=== PATIENT | male | born 1945 | race Caucasian/White ===

== ENCOUNTER 2017-06-01 16:01 | Inpatient (IN) | payer OTHER, MEDICARE ==
--- NOTE | 2017-06-01 16:17 | EDM.PDOC ---
ED HPI GENERAL MEDICAL PROBLEM - General Chief Complaint: Respiratory Problem Stated Complaint: SOB,FEVER Time Seen by Provider: 06/01/17 16:14 Source of Information: Reports: Patient History Limitations: Reports: No Limitations - History of Present Illness INITIAL COMMENTS - FREE TEXT/NARRATIVE: 72-year-old male sent to the ED from the dialysis unit because of a persistent fever noted throughout his dialysis run today. Of note the patient was discharged from [facility] yesterday. This is his first dialysis run at this hospital today. Current temperature is 100.4 degrees. Patient complains of shortness of breath and fever. Patient states he developed fever and chills last evening. Came on very quickly. He usually is on oxygen at home usually 1-2 L at bedtime because his sats drop into the 85 zone when he sleeps. At time of presentation he came to the ED from dialysis with no oxygen with O2 sats of only 70%. This is the patient's first dialysis run today. He's been in and out of hospital in [place] for the last 6 weeks. A dry weight has been established and apparently they have taken off over 40 pounds of fluid from him over the last several weeks. At present he has developed a dry cough. He has had an influenza shot. Has had pneumonia in the past. By history has mild COPD. He does not have sleep apnea. Nurses of placed him on a mask at 12 L/m. This will be changed to nasal prongs at 5 L/m and ABGs will be done. Patient previously had a peritoneal dialysis catheter being utilized for dialysis which apparently plugged up and after several attempts to utilize it it failed and it was removed yesterday. He is immunocompromised due to multiple myeloma and received a chemotherapy shot in his right lower abdomen yesterday which is resulted in an area of erythema characteristic of the shots. He is on cyclosporine and dexamethasone. He still makes about a cup or more of urine per day. Patient has had an AV fistula created in his left upper extremity two days ago. Onset: Today, Sudden Onset Date: 05/31/17 (Was discharged from [facility] yesterday. States he developed fever and chills last evening.) Duration: Hour(s): Location: Reports: Generalized (Generalized fever with chills starting last night with a paroxysmal dry cough.) Quality: Reports: Ache (Generalized ache.) Severity: Moderate (Appears acutely with moderate respiratory distress.) Improves with: Reports: None Worsens with: Reports: Movement Context: Denies: Activity, Exercise, Lifting, Sick Contact, Trauma, Other Associated Symptoms: Reports: Cough (Dry hacking cough he has not identified any stool color to the sputum.), Fever/Chills, Loss of Appetite, Malaise, Shortness of Breath, Weakness (Chronically but much worse overnight.). 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 ) - Related Data Allergies Allergy/AdvReac Type Severity Reaction Status Date / Time No Known Allergies Allergy Verified 06/01/17 16:13 Home Meds: Home Meds Acetaminophen [Tylenol] 650 mg PO Q6H PRN 06/01/17 [History] Acyclovir 200 mg PO BID 06/01/17 [History] Aspirin 81 mg PO DAILY 06/01/17 [History] Budesonide/Formoterol [Symbicort 160-4.5 MCG] 2 puff INH BID 06/01/17 [History] Calcium Acetate 667 mg PO TID 06/01/17 [History] Fluticasone/Salmeterol [Advair Hfa 230-21 Mcg Inhaler] 2 puff INH BID 06/01/17 [ History] Lactulose [Chronulac] 30 ml PO Q6H PRN 06/01/17 [History] Melatonin 3 mg PO BEDTIME PRN 06/01/17 [History] Metoprolol Succinate 25 mg PO BID 06/01/17 [History] NIFEdipine [Procardia] 30 mg PO DAILY 06/01/17 [History] Pantoprazole Sodium [Protonix] 40 mg PO DAILY 06/01/17 [History] Rosuvastatin [Crestor] 40 mg PO DAILY 06/01/17 [History] Tamsulosin [Flomax] 0.4 mg PO DAILY 06/01/17 [History] Tiotropium Speer [Spiriva Respimat] 18 mcg INH DAILY 06/01/17 [History] hydrALAZINE [Apresoline] 10 mg PO TID 06/01/17 [History] oxyCODONE HCl/Acetaminophen [oxyCODONE-Acetaminophen 5-325] 5 - 325 mg PO Q4H PRN 06/01/17 [History] Past Medical History Cardiovascular History: Reports: Hypertension, SOB on Exertion Respiratory History: Reports: Bronchitis, Recurrent, COPD. Denies: Sleep Apnea Genitourinary History: Reports: BPH, Dialysis (Currently on hemodialysis utilizing Broviac catheters right upper anterior chest. He has had an AV fistula formed and his left antecubital and left lower arm 2 days ago.), Dialysis, Peritoneal (Was previously on peritoneal dialysis but the dialysis catheter failed over the last 3 weeks and it was finally removed yesterday.) Musculoskeletal History: Reports: Arthritis, Back Pain, Chronic, Osteoarthritis Oncologic (Cancer) History: Reports: Malignant Melanoma Social & Family History - Living Situation & Occupation Living situation: Reports: Occupation: Retired ED ROS GENERAL - Review of Systems Review Of Systems: See Below Constitutional: Reports: Fever, Chills, Malaise, Weakness, Fatigue, Decreased Appetite, Weight Loss (Has lost 40 pounds of weight on dialysis over the last 6 weeks) HEENT: Denies: Glasses, Hearing Loss, Nosebleed, Nose Pain, Rhinitis, Sinus Problem, Throat Pain, Throat Swelling, Vertigo Respiratory: Reports: Shortness of Breath, Cough. Denies: Wheezing, Pleuritic Chest Pain Cardiovascular: Reports: Blood Pressure Problem, Dyspnea on Exertion (Chronic dependent edema which she reports is quite a bit improved with 40 pound weight loss over the last 6 weeks), Edema, Orthopnea, Other. Denies: Chest Pain (Not bringing up much sputum at this time.), Claudication (Chronic severe hypertension due to renal disease.), Palpitations Endocrine: Reports: Fatigue (Utilizes oxygen at bedtime because his sats drop below 85%.) GI/Abdominal: Reports: Constipation, Decreased Appetite : Reports: Other Musculoskeletal: Reports: Back Pain (Still makes a little over a cup of urine per day. Has known problems with his prostate gland.), Other (Can barely walk due to lower extremity weakness.) Skin: Reports: Erythema (Erythema at site of abdominal injection with chemotherapy yesterday right lower abdomen. States it always becomes reddened where he gets the injections.) Neurological: Reports: Dizziness, Difficulty Walking (Due to severe weakness in the lower extremities), Gait Disturbance (Widened gait.). Denies: Headache, Numbness, Pre-Existing Deficit, Seizure, Syncope, Tingling (Occasionally.), Change in Speech Psychiatric: Reports: No Symptoms Hematologic/Lymphatic: Reports: Anemia ED EXAM, GENERAL - Physical Exam Exam: See Below Exam Limited By: Respiratory Distress (Patient is currently on a nonrebreather mask at 12 L/m due to sats at 70% at presentation to the ED. This will be replaced with nasal cannula at 5 L/m. He usually uses oxygen 1-2 L by nasal cannula at bedtime to maintain his O2 sats during sleep. He does not have sleep apnea according to the .) General Appearance: Lethargic, Moderate Distress (He has significant respiratory distress. ) Eye Exam: Bilateral Eye: Normal Inspection (Lower eyelids are revealing pallor.) Throat/Mouth: Normal Inspection, Normal Lips, Normal Oropharynx. No: Normal Teeth Head: Atraumatic, Normocephalic Neck: Normal Inspection, Full Range of Motion, Tender Lateral (Bilaterally but he states this is normal for him.). No: Lymphadenopathy (L), Lymphadenopathy (R ) Respiratory/Chest: Chest Non-Tender, Respiratory Distress (Moderate respiratory distress 22-26 breaths per minute. O2 sats initially were 70%. He was placed on nonrebreather mask by nursing staff at 12 L/m with O2 sats of 98%. After I visited with the patient he will be reduced to nasal prongs at 5 L/m and hopefully reduce further. ABGs will be done to assess his carbon dioxide levels. ), Rales (Few rales scattered throughout the bases of both lungs.), Rhonchi. No : Wheezing Cardiovascular: Regular Rate, Rhythm, No Murmur, No Rub. No: Normal Peripheral Pulses, Systolic Murmur Peripheral Pulses: 0: Posterior Tibial (L), Posterior Tibial (R), Dorsalis Pedis (L), Dorsalis Pedis (R) (No pulsatile palpable in his feet due to dependent edema.) GI/Abdominal: Normal Bowel Sounds, Non-Tender, No Mass, Other (He has a area of erythema approximately 7 cm in length and 2 cm lesion in with right lower quadrant of the abdomen at site of recent chemotherapy injection. Is a bandage covering the peritoneal dialysis wound infraumbilically. This has been oozing some serosanguineous fluid.) Extremities: Pedal Edema (Has 3+ pitting edema bilaterally.), Other (Recent formation of a AV fistula left lower arm over the biceps muscle. Has a good strong palpable thrill. Nurses felt the wound may be dehiscing and we bit in the antecubital fossa but I did not feel that this was the case.) Neurological: Alert, Oriented, CN II-XII Intact, Normal Cognition. No: Normal Gait Skin Exam: Warm, Dry, Normal Color, No Rash, Pallor (He is quite pallid.) EKG INTERPRETATION EKG Date: 06/01/17 Time: 17:00 Rhythm: Other Rate (Beats/Min): 102 [place]: Normal P-Wave: Present QRS: Normal ST-T: Other (T-wave flattening one in aVL and V6 which are nonspecific findings. ) QT: Normal Course - Vital Signs Last Recorded V/S: Last Vital Signs Temp 37.2 C 06/01/17 16:09 Pulse 115 H 06/01/17 16:09 Resp 22 H 06/01/17 16:09 BP 216/95 H 06/01/17 16:09 Pulse Ox 98 06/01/17 16:53 - Orders/Labs/Meds Orders: Active Orders 24 hr Category Date Time Status Admission Status [Patient Status] [ADT] Routine ADT 06/01/17 19:07 Active EKG Documentation Completion [RC] STAT Care 06/01/17 16:16 Active Peripheral IV Care [RC] . DIRECTED Care 06/01/17 18:59 Active Chest 1V Frontal [CR] Stat Exams 06/01/17 16:15 Taken CULTURE BLOOD [BC] Stat Lab 06/01/17 16:40 Received CULTURE BLOOD [BC] Stat Lab 06/01/17 17:00 Received INFLUENZA A+B AG SCREEN [RM] Stat Lab 06/01/17 16:35 Received URINALYSIS W/MICROSCOPIC [UA W/MICROSCOPIC] [URIN] Stat Lab 06/01/17 16:16 Uncollected URINALYSIS W/O MICROSCOPIC [UA W/O MICROSCOPIC] [URIN] Lab 06/01/17 16:16 Uncollected Stat Sodium Chloride 0.9% [Saline Flush] Med 06/01/17 18:59 Active 10 ml FLUSH ASDIRECTED PRN Blood Culture x2 Reflex Set [OM.PC] Stat Oth 06/01/17 16:16 Ordered Peripheral IV Insertion Adult [OM.PC] Stat Oth 06/01/17 18:59 Ordered Medication Orders Sodium Chloride (Saline Flush) 10 ml FLUSH ASDIRECTED PRN PRN Reason: Keep Vein Open Last Admin: 06/01/17 19:09 Dose: 10 ml Labs: Laboratory Tests 06/01/17 06/01/17 06/01/17 Range/Units 16:39 16:40 16:40 WBC 17.28 H (4.23-9.07) K/mm3 RBC 3.02 L (4.63-6.08) M/mm3 Hgb 9.1 L (13.7-17.5) gm/L Hct 28.7 L (40.1-51.0) % MCV 95.0 H (79.0-92.2) fl MCH 30.1 (25.7-32.2) pg MCHC 31.7 L (32.2-35.5) g/dl RDW Std Deviation 48.7 H (35.1-43.9) fL Plt Count 28 L (163-337) K/mm3 MPV 10.6 (9.4-12.3) fl Neutrophils % (Manual) 92 H (40-60) % Band Neutrophils % 0 (0-10) % Lymphocytes % (Manual) 3 L (20-40) % Atypical Lymphs % 0 % Monocytes % (Manual) 5 (2-10) % Eosinophils % (Manual) 0 L (0.8-7.0) % Basophils % (Manual) 0 L (0.2-1.2) Platelet Estimate Marked dec Plt Morphology Comment Normal Poikilocytosis 1+ slight Anisocytosis 1+ slight ESR (0-15) mm/hr PT 11.0 (8.0-13.0) SECONDS INR 1.01 Puncture Site Rt radial ABG pH 7.41 (7.35-7.45) ABG pCO2 41.4 (35.0-45.0) mmHg ABG pO2 65.0 L (80.0-100.0) mmHg ABG HCO3 25.8 (22.0-26.0) meq/L ABG O2 Saturation 95.1 L (96.0-97.0) % ABG Base Excess 1.6 (-2-2.0) Yoel Test Positive A-a Gradient 140 mmHg O2 Delivery Device Nasal cannula Oxygen Flow Rate 5.0 FiO2 40.00 (21.00-100.00) % Sodium (136-145) mEq/L Potassium (3.5-5.1) mEq/L Chloride (98-107) mEq/L Carbon Dioxide (21-32) mEq/L Anion Gap (5-15) BUN (7-18) mg/dL Creatinine (0.7-1.3) mg/dL Est Cr Clr Drug Dosing mL/min Estimated GFR (MDRD) (>60) mL/min BUN/Creatinine Ratio (14-18) Glucose (83-115) mg/dL Calcium (8.5-10.1) mg/dL Magnesium (1.8-2.4) mg/dl Total Bilirubin (0.2-1.0) mg/dL AST (15-37) U/L ALT (16-63) U/L Alkaline Phosphatase (46-116) U/L CK-MB (CK-2) (0-3.6) ng/ml Troponin I (0.00-0.056) ng/mL C-Reactive Protein (<1.0) mg/dL NT-Pro-B Natriuret Pep (0-125) pg/mL Total Protein (6.4-8.2) g/dl Albumin (3.4-5.0) g/dl Globulin gm/dL Albumin/Globulin Ratio (1-2) 06/01/17 06/01/17 06/01/17 Range/Units 16:40 16:40 16:40 WBC (4.23-9.07) K/mm3 RBC (4.63-6.08) M/mm3 Hgb (13.7-17.5) gm/L Hct (40.1-51.0) % MCV (79.0-92.2) fl MCH (25.7-32.2) pg MCHC (32.2-35.5) g/dl RDW Std Deviation (35.1-43.9) fL Plt Count (163-337) K/mm3 MPV (9.4-12.3) fl Neutrophils % (Manual) (40-60) % Band Neutrophils % (0-10) % Lymphocytes % (Manual) (20-40) % Atypical Lymphs % % Monocytes % (Manual) (2-10) % Eosinophils % (Manual) (0.8-7.0) % Basophils % (Manual) (0.2-1.2) Platelet Estimate Plt Morphology Comment Poikilocytosis Anisocytosis ESR 25 H (0-15) mm/hr PT (8.0-13.0) SECONDS INR Puncture Site ABG pH (7.35-7.45) ABG pCO2 (35.0-45.0) mmHg ABG pO2 (80.0-100.0) mmHg ABG HCO3 (22.0-26.0) meq/L ABG O2 Saturation (96.0-97.0) % ABG Base Excess (-2-2.0) Yoel Test A-a Gradient mmHg O2 Delivery Device Oxygen Flow Rate FiO2 (21.00-100.00) % Sodium 139 (136-145) mEq/L Potassium 3.9 (3.5-5.1) mEq/L Chloride 102 (98-107) mEq/L Carbon Dioxide 27 (21-32) mEq/L Anion Gap 13.9 (5-15) BUN 15 (7-18) mg/dL Creatinine 2.5 H (0.7-1.3) mg/dL Est Cr Clr Drug Dosing 26.71 mL/min Estimated GFR (MDRD) 26 (>60) mL/min BUN/Creatinine Ratio 6.0 L (14-18) Glucose 91 (83-115) mg/dL Calcium 8.0 L (8.5-10.1) mg/dL Magnesium 1.5 L (1.8-2.4) mg/dl Total Bilirubin 0.3 (0.2-1.0) mg/dL AST 20 (15-37) U/L ALT 9 L (16-63) U/L Alkaline Phosphatase 103 (46-116) U/L CK-MB (CK-2) 0.9 (0-3.6) ng/ml Troponin I 0.044 (0.00-0.056) ng/mL C-Reactive Protein 1.4 H* (<1.0) mg/dL NT-Pro-B Natriuret Pep 9225 H (0-125) pg/mL Total Protein 5.4 L (6.4-8.2) g/dl Albumin 2.3 L (3.4-5.0) g/dl Globulin 3.1 gm/dL Albumin/Globulin Ratio 0.7 L (1-2) Meds: Medications Generic Name Dose Route Start Last Admin Trade Name Freq PRN Reason Stop Dose Admin Sodium Chloride 10 ml 06/01/17 18:59 06/01/17 19:09 Saline Flush FLUSH 10 ml ASDIRECTED PRN Administration Keep Vein Open Discontinued Medications Generic Name Dose Route Start Last Admin Trade Name Freq PRN Reason Stop Dose Admin Ceftriaxone Sodium Confirm 06/01/17 17:41 06/01/17 17:45 Rocephin Administered 06/01/17 17:42 2 gm Dose Administration 2 gm .ROUTE .STK-MED ONE Furosemide 60 mg 06/01/17 18:58 06/01/17 19:09 Lasix IVPUSH 06/01/17 18:59 60 mg NOW ONE Administration Ceftriaxone Sodium 2 gm/ 100 mls @ 200 mls/hr 06/01/17 17:29 06/01/17 17:45 Sodium Chloride IV 06/01/17 17:58 200 mls/hr ONETIME ONE Administration Sodium Chloride Confirm 06/01/17 17:41 06/01/17 17:45 Normal Saline Administered 06/01/17 17:42 100 ml Dose Administration 100 mls @ as directed .ROUTE .STK-MED ONE Levofloxacin 500 mg 06/01/17 18:55 06/01/17 19:03 Levaquin PO 06/01/17 18:56 500 mg ONETIME ONE Administration - Radiology Interpretation Free Text/Narrative:: 72-year-old male presents to the ED with acute onset of fever chills and dry cough. He was discharged from [facility] yesterday. He was in dialysis today for the first time in our hospital.. Dry weight has been obtained. They stopped his running approximate half an hour earlier than proposed due to low O2 sats and fever. Temperatures 100.4 in the dialysis unit. Patient has multiple reasons to get an infection. He is recently had a AV fistula formation left lower arm 2 days ago. He has Broviac catheters in place right upper anterior chest there being utilized for dialysis. He had a peritoneal dialysis Tran catheter that was removed yesterday because of failure to function even though is in proper position. He has multiple myeloma and his immunocompromised , receiving chemotherapy with cyclosporine and dexamethasone. Still makes approximate a little over a couple of urine daily. Acute onset of fever chills with rigors and cough suggest possible influenza. He presents in respiratory failure with O2 sats of 70% on room air. Currently is on 5 L/m by nasal cannula with O2 sats of 95%. Full septic workup will be obtained including influenza screen. ABG`s will be done as well. - Re-Assessments/Exams Free Text/Narrative Re-Assessment/Exam: 06/01/17 17:27 chest x-ray done portably reveals a right lower lobar pneumonia. Patient will be thus started on 2 g of Rocephin at this time. Note his ABGs revealed a pH of 7.41. PCO2 was 41.2. PaO2 was 65. At present he is satting at 100% on 5 L and is oxygen will thus be turned down to 3 L/m by nasal cannula. 06/01/17 18:11 Labs reveal a elevated white count at 17.28 with a left shift of 92% neutrophils and no bands. Hemoglobin is low at 9.1 with hematocrit of 28.7. Platelet count is very low at 28,000. His is likely the result of recent chemotherapy but I cannot prove this without records from [place]. PT is 11.0 with an INR 1.01. Sodium is 139 with a potassium of 3.9. Chloride is 102 with a bicarbonate of 27. Anion gap is 13.9 . BUN is 15. Creatinine is 2.5. Glucose is 91 magnesium is slightly low at 1.5. Liver function is normal. CK-MB is 0.9 troponin I is 0.044. C-reactive protein is 1.4. BNP is 9225. Albumin fraction is low at 2.3. 06/01/17 18:56 decision made to keep the patient in the hospital at least overnight for observation status to treat his pneumonia and correct his hypoxic state. I am going to give him Lasix 60 mg IV in an effort to reduce some diuresis although this may be ineffectual with his kidney function. He will be given oral Levaquin 500 mg as well as Rocephin 1 g daily. Care will be assumed tomorrow morning by hospitalist. 06/01/17 19:22 admissions director hospitalist is not available at this time. I therefore spoke with Clarence Bernstein hospitalist DELIA and he will write the admission orders for Mr. Chun. The only outstanding test is his influenza screen. Departure - Departure Time of Disposition: 18:59 Disposition: Admitted As Inpatient 66 Condition: Poor Clinical Impression: H/O immunocompromised state, Acute hemodialysis patient, Acute febrile illness , Thrombocytopenia Pneumonia Qualifiers: Pneumonia type: due to unspecified organism Laterality: right Lung location: lower lobe of lung Qualified Code(s): J18.1 - Lobar pneumonia, unspecified organism Multiple myeloma Qualifiers: Multiple myeloma remission status: not in remission Qualified Code(s): C90.00 - Multiple myeloma not having achieved remission Leukocytosis Qualifiers: Leukocytosis type: bandemia Qualified Code(s): D72.825 - Bandemia Anemia Qualifiers: Anemia type: due to chronic kidney disease Chronic kidney disease stage: on chronic dialysis Qualified Code(s): N18.6 - End stage renal disease Congestive heart failure (CHF) Qualifiers: Congestive heart failure type: diastolic Congestive heart failure chronicity: acute on chronic Qualified Code(s): I50.33 - Acute on chronic diastolic ( congestive) heart failure - Discharge Information Referrals: PCP,Not In Area [Primary Care Provider] - Forms: ED Department Discharge - My Orders Last 24 Hours: My Active Orders 06/01/17 16:15 Chest 1V Frontal [CR] Stat 06/01/17 16:16 EKG Documentation Completion [RC] STAT URINALYSIS W/MICROSCOPIC [UA W/MICROSCOPIC] [URIN] Stat URINALYSIS W/O MICROSCOPIC [UA W/O MICROSCOPIC] [URIN] Stat Blood Culture x2 Reflex Set [OM.PC] Stat 06/01/17 16:35 INFLUENZA A+B AG SCREEN [RM] Stat 06/01/17 16:40 CULTURE BLOOD [BC] Stat 06/01/17 17:00 CULTURE BLOOD [BC] Stat 06/01/17 18:59 Peripheral IV Care [RC] . DIRECTED Sodium Chloride 0.9% [Saline Flush] 10 ml FLUSH ASDIRECTED PRN Peripheral IV Insertion Adult [OM.PC] Stat 06/01/17 19:07 Admission Status [Patient Status] [ADT] Routine - Assessment/Plan Last 24 Hours: My Active Orders 06/01/17 16:15 Chest 1V Frontal [CR] Stat 06/01/17 16:16 EKG Documentation Completion [RC] STAT URINALYSIS W/MICROSCOPIC [UA W/MICROSCOPIC] [URIN] Stat URINALYSIS W/O MICROSCOPIC [UA W/O MICROSCOPIC] [URIN] Stat Blood Culture x2 Reflex Set [OM.PC] Stat 06/01/17 16:35 INFLUENZA A+B AG SCREEN [RM] Stat 06/01/17 16:40 CULTURE BLOOD [BC] Stat 06/01/17 17:00 CULTURE BLOOD [BC] Stat 06/01/17 18:59 Peripheral IV Care [RC] . DIRECTED Sodium Chloride 0.9% [Saline Flush] 10 ml FLUSH ASDIRECTED PRN Peripheral IV Insertion Adult [OM.PC] Stat 06/01/17 19:07 Admission Status [Patient Status] [ADT] Routine
[2017-06-01] MEDS ORDERED: cefTRIAXone 2 GM in Sodium Chloride 0.9% 100 ML IV ONE (17:29)
[2017-06-01] MEDS ORDERED: cefTRIAXone 2 GM Vial ONE (17:41)
[2017-06-01] MEDS ORDERED: Sodium Chloride 0.9% 100 ML ONE (17:41)
[2017-06-01] MEDS ORDERED: Levofloxacin 250 MG Tab PO ONE (18:55)
[2017-06-01] MEDS ORDERED: Furosemide 40 MG/4 ML VIAL IVPUSH ONE (18:58)
[2017-06-01] MEDS ORDERED: Sodium Chloride 0.9% 10 ML Syringe FLUSH PRN (18:59)
[2017-06-01] MEDS ORDERED: Docusate Sodium 100 MG Cap PO PRN (21:17)
[2017-06-01] MEDS ORDERED: Bisacodyl 5 MG Tab PO PRN (21:17)
[2017-06-01] MEDS ORDERED: Ondansetron 4 MG/2 ML SDV IV PRN (21:17)
[2017-06-01] MEDS ORDERED: Polyethylene Glycol 3350 Powder 17 GM Packet PO PRN (21:17)
[2017-06-01] MEDS ORDERED: Albuterol 0.083% 2.5 MG/3 ML Neb Soln NEB PRN (21:17)
[2017-06-01] MEDS ORDERED: Ondansetron 4 MG Tab.DIS PO PRN (21:17)
[2017-06-01] MEDS ORDERED: Albuterol/Ipratropium 3.0-0.5 MG/3 ML Neb Soln NEB PRN (21:17)
[2017-06-01] MEDS ORDERED: Acetaminophen 325 MG Tab PO PRN (21:17)
[2017-06-01] MEDS ORDERED: hydrALAZINE 20 MG/ML SDV IVPUSH PRN (21:40)
[2017-06-01] MEDS ORDERED: Metoprolol Tartrate 5 MG/5 ML SDV IVPUSH PRN (21:40)
--- NOTE | 2017-06-02 00:51 | PCM.HP ---
H&P History of Present Illness - General Date of Service: 06/01/17 Admit Problem/Dx: Admission Diagnosis/Problem Admission Diagnosis/Problem Pneumonia Source of Information: Patient, Provider, RN, Significant Other History Limitations: Reports: No Limitations - History of Present Illness Initial Comments - Free Text/Narative: Bill Pardo is a 72 yo male who since her ED today from the dialysis unit because of persistent fever noted throughout his dialysis run today. The patient was discharged from [facility] yesterday. He is having his first [facility] today. Temp on arrival was 100.4. He was a shortness of breath and fever. States he developed fever and chills yesterday evening which came on very quickly. He is usually on home oxygen at 1 -2 L at bedtime because his oxygen saturation drops to around 85% when he sleeps. When he arrived from dialysis his sats were only in the low 70s. A dry weight has been establish apparently taken off over 40 pounds of fluid from him over the last several weeks. He presents with a dry cough. He has had his influenza vaccination. His had pneumonia in the past. He has a history of mild COPD. The patient previously done peritoneal dialysis which was largely unsuccessful and plugged several times. It was removed yesterday. You compromised due to multiple myeloma and received a chemotherapy shot in his right lower abdomen yesterday which resulted an area of edema characteristic of the shots. He is on cyclosporine and dexamethasone. He still makes a couple more of urine per day. His AV fistula in his left upper extremity which has been present for 2 days. Arrival in the ED temperature 37.2. Pulse 1:15. Respirations 22.the pressure was 260/95. EKG is obtained and shows a rate of 102 bpm nonspecific T-wave flattening is noted in aVL and V6. Blood cultures are obtained. Insulin screen is obtained and is negative.urinalysis was attempted however patient is unable to produce any urine at this time. Labs are obtained: WBC is elevated at 17.28. Hemoglobin is low at 9.1. Hematocrit low at 20.7. He is macrocytic. Platelets are very low at 28,000. Neutrophils are elevated 92%. There is no bandemia. ESR is obtained and found to be 25. PT is 11. INR is 1.01. ABG was obtained in the right radial. PH is 7.41. PCO2 is 41.4. PO2 is low at 65. HCO3 is 25.8. O2 saturation is 95.1. Base excess is 1.6. A-a gradient is 140. This is on 5 L via nasal cannula. FiO2 is 40.00. Sodium was good at 139. Potassium 3.9. Chloride 106. Current Axid 27. Anion gap 13.9. BUN 15. Creatinine elevated 2.5. EGFR is 26. Glucose is 91. Calcium is low at 8.0. Magnesium is low at 2.5. Bilirubin is normal at 0.3. AST is 20, ALT 9 , alkaline phosphatase 103. CK-MB is 0.9. Troponin 0.044. CRP is 1.4. ProBNP is 9225. OT is low at 5.4. Albumin is low at 2.3. 2 g ceftriaxone is initiated. 60 mg Lasix is given 2 g Rocephin is also given. 500 mg by mouth Levaquin initiated. Chest x-rays performed and reveals a right lower lobe pneumonia. it is communicated to the patient and his that we generally will not admit dialysis patients to our hospital as we do not have the capability to perform bedside dialysis. They're adamant that they do not want to be transferred as the is unable to drive after dark. Concerns are addressed about the possible need for nephrology or more advanced care and they still refused. the option of flying the patient to [place] where he was recently released was explored however the patient would like to stay here at least overnight. He is subsequently admitted to the ICU under medical surgical status. He is a full code. He carries a history of hypertension, recurrent bronchitis, COPD, BPH, dialysis, arthritis, chronic back pain, osteoarthritis, malignant melanoma, kidney failure. - Related Data Allergies/Adverse Reactions: Allergies Allergy/AdvReac Type Severity Reaction Status Date / Time No Known Allergies Allergy Verified 06/01/17 20:52 Home Medications: Home Meds Acetaminophen [Tylenol] 650 mg PO Q6H PRN 06/01/17 [History] Acyclovir 200 mg PO BID 06/01/17 [History] Aspirin 81 mg PO DAILY 06/01/17 [History] Budesonide/Formoterol [Symbicort 160-4.5 MCG] 2 puff INH BID 06/01/17 [History] Calcium Acetate 667 mg PO TID 06/01/17 [History] Fluticasone/Salmeterol [Advair Hfa 230-21 Mcg Inhaler] 2 puff INH BID 06/01/17 [ History] Lactulose [Chronulac] 30 ml PO Q6H PRN 06/01/17 [History] Melatonin 3 mg PO BEDTIME PRN 06/01/17 [History] Metoprolol Succinate 25 mg PO BID 06/01/17 [History] NIFEdipine [Procardia] 30 mg PO DAILY 06/01/17 [History] Pantoprazole Sodium [Protonix] 40 mg PO DAILY 06/01/17 [History] Rosuvastatin [Crestor] 40 mg PO DAILY 06/01/17 [History] Tamsulosin [Flomax] 0.4 mg PO DAILY 06/01/17 [History] Tiotropium [place] [Spiriva Respimat] 18 mcg INH DAILY 06/01/17 [History] hydrALAZINE [Apresoline] 10 mg PO TID 06/01/17 [History] oxyCODONE HCl/Acetaminophen [oxyCODONE-Acetaminophen 5-325] 5 - 325 mg PO Q4H PRN 06/01/17 [History] Past Medical History HEENT History: Reports: Cataract, Impaired Vision Cardiovascular History: Reports: Hypertension, SOB on Exertion Respiratory History: Reports: COPD, Pneumonia, Recurrent, SOB Gastrointestinal History: Reports: Chronic Constipation, GERD Genitourinary History: Reports: BPH, Dialysis, Dialysis, Peritoneal Other Genitourinary History: dialysis today; this is the 6th treatment but the first dialysis run here. pt had been hospitalized in [place] due to his condition, Musculoskeletal History: Reports: Back Pain, Chronic Neurological History: Reports: CVA Psychiatric History: Reports: Anxiety, Depression Oncologic (Cancer) History: Reports: Malignant Melanoma, Prostate - Past Surgical History HEENT Surgical History: Reports: Cataract Surgery, Detached Retina Cardiovascular Surgical History: Reports: None Respiratory Surgical History: Reports: None GI Surgical History: Reports: Colonoscopy, EGD Male Surgical History: Reports: None Neurological Surgical History: Reports: None Musculoskeletal Surgical History: Reports: None Oncologic Surgical History: Reports: None Social & Family History - Family History Family Medical History: Noncontributory - Tobacco Use Smoking Status *Q: Former Smoker Used Tobacco, but Quit: Yes Month Tobacco Last Used: 2008 - Caffeine Use Caffeine Use: Reports: Coffee, Soda - Recreational Drug Use Recreational Drug Use: No - Living Situation & Occupation Living situation: Reports: Occupation: Retired H&P Review of Systems - Review of Systems: Review Of Systems: See Below General: Reports: Chills, Malaise, Weakness, Fatigue, Decreased Appetite, Weight Loss. Denies: Fever HEENT: Denies: Ear Pain, Eye Pain, Rhinitis, Sinus Congestion, Sore Throat Pulmonary: Reports: Shortness of Breath, Cough, Other (Utilizes home O2 at bedtime). Denies: Wheezing, Sputum Cardiovascular: Reports: Dyspnea on Exertion, Orthopnea, Edema, Blood Pressure Problem. Denies: Chest Pain, Palpitations, Lightheadedness, Syncope Gastrointestinal: Reports: No Symptoms. Denies: Abdominal Pain, Constipation, Diarrhea, Nausea, Vomiting Genitourinary: Reports: Retention Musculoskeletal: Reports: Back Pain (chronic) Skin: Reports: Erythema (right lower abdomen s/p chemotherapy injection - reports this is normal for him) Neurological: Reports: Dizziness, Pre-Existing Deficit, Difficulty Walking, Weakness, Gait Disturbance Hematologic/Lymphatic: Reports: Anemia Immunologic: Reports: No Symptoms Exam - Exam Exam: See Below - Vital Signs Vital Signs: Last Vital Signs Temp 99.1 F 06/02/17 00:00 Pulse 88 06/02/17 00:00 Resp 17 06/02/17 00:00 BP 134/64 06/02/17 00:00 Pulse Ox 92 L 06/02/17 00:00 Weight: 188 lb 14.4 oz - Exam Quality Assessment: Supplemental Oxygen General: Alert, Oriented, Cooperative. No: Mild Distress HEENT: PERRLA, Hearing Intact, Mucosa Moist & [place], Nares Patent, Normal Nasal Septum, Posterior Pharynx Clear, Conjunctiva Clear, EOMI, EACs Clear, TMs Clear Neck: Supple, Trachea Midline. No: JVD, Thyromegaly Lungs: Normal Respiratory Effort, Rales GI/Abdominal Exam: Normal Bowel Sounds, Soft, Non-Tender, No Organomegaly, No Distention, No Abnormal Bruit, No Mass, Pelvis Stable (Male) Exam: Deferred Rectal (Males) Exam: Deferred Back Exam: Normal Inspection, Decreased Range of Motion Extremities: Pedal Edema (2-3+) Peripheral Pulses: 0: Posterior Tibial (L), Posterior Tibial (R), Dorsalis Pedis (L), Dorsalis Pedis (R), 1+: Radial (L), Radial (R) Skin: Warm, Dry, Intact Neurological: Cranial Nerves Intact (grossly ) Neuro Extensive - Mental Status: Alert, Oriented x3, Normal Mood/Affect, Normal Cognition, Memory Intact Neuro Extensive - Motor, Sensory, Reflexes: CN II-XII Intact, Abnormal Gait Psychiatric: Alert, Normal Affect, Normal Mood - Patient Data Result Diagrams: 06/01/17 16:40 06/01/17 16:40 *Q Meaningful Use (ADM) - VTE *Q VTE Criteria *Q: - Stroke *Q Stroke Criteria *Q: - AMI *Q AMI Criteria *Q: - Problem List (1) Acute febrile illness SNOMED Code(s): 442426052 ICD Code: R50.9 - FEVER, UNSPECIFIED Status: Acute Priority: High Current Visit: Yes (2) Acute hemodialysis patient SNOMED Code(s): 972572086 ICD Code: Z99.2 - DEPENDENCE ON RENAL DIALYSIS Status: Acute Priority: High Current Visit: Yes (3) Anemia SNOMED Code(s): 894460087 ICD Code: D64.9 - ANEMIA, UNSPECIFIED Status: Chronic Priority: Medium Current Visit: Yes Qualifiers: Anemia type: due to chronic kidney disease Chronic kidney disease stage: on chronic dialysis Qualified Code(s): N18.6 - End stage renal disease; D63.1 - Anemia in chronic kidney disease; D63.1 - Anemia in chronic kidney disease; Z99.2 - Dependence on renal dialysis; Z99.2 - Dependence on renal dialysis; Z99.2 - Dependence on renal dialysis; Z99.2 - Dependence on renal dialysis (4) Congestive heart failure (CHF) SNOMED Code(s): 89815544 ICD Code: I50.9 - HEART FAILURE, UNSPECIFIED Status: Acute Priority: Medium Current Visit: Yes Qualifiers: Congestive heart failure type: diastolic Congestive heart failure chronicity: acute on chronic Qualified Code(s): I50.33 - Acute on chronic diastolic (congestive) heart failure (5) H/O immunocompromised state SNOMED Code(s): 605435303 ICD Code: Z86.2 - PRSNL HISTORY OF DIS OF THE BLD/BLD-FORM ORG/IMMUN MECHNSM Status: Acute Priority: High Current Visit: Yes (6) Leukocytosis SNOMED Code(s): 434932541 ICD Code: D72.829 - ELEVATED WHITE BLOOD CELL COUNT, UNSPECIFIED Status: Acute Priority: High Current Visit: Yes Qualifiers: Leukocytosis type: unspecified Qualified Code(s): D72.829 - Elevated white blood cell count, unspecified (7) Multiple myeloma SNOMED Code(s): 143166513 ICD Code: C90.00 - MULTIPLE MYELOMA NOT HAVING ACHIEVED REMISSION Status: Acute Priority: High Current Visit: Yes Qualifiers: Multiple myeloma remission status: not in remission Qualified Code(s): C90.00 - Multiple myeloma not having achieved remission (8) Pneumonia SNOMED Code(s): 894475182 ICD Code: J18.9 - PNEUMONIA, UNSPECIFIED ORGANISM Status: Acute Priority : High Current Visit: Yes Qualifiers: Pneumonia type: due to unspecified organism Laterality: right Lung location: lower lobe of lung Qualified Code(s): J18.1 - Lobar pneumonia, unspecified organism (9) Thrombocytopenia SNOMED Code(s): 551281038 ICD Code: D69.6 - THROMBOCYTOPENIA, UNSPECIFIED Status: Acute Priority: Medium Current Visit: Yes (10) Hypomagnesemia SNOMED Code(s): 173304965 ICD Code: E83.42 - HYPOMAGNESEMIA Status: Acute Priority: High Current Visit: Yes Problem List Initiated/Reviewed/Updated: Yes Orders Last 24hrs: Active Orders 24 hr Category Date Time Status Antiembolic Devices [RC] QSHIFT Care 06/01/17 21:25 Active Cardiac Monitoring [RC] CONTINUOUS Care 06/01/17 21:18 Active Height and Weight [RC] 04 Care 06/01/17 21:17 Active Intake and Output [RC] 04,16 Care 06/01/17 21:18 Active Oxygen Therapy [RC] PRN Care 06/01/17 21:17 Active Pulse Oximetry [RC] PRN Care 06/01/17 21:18 Active RT Aerosol Therapy [RC] ASDIRECTED Care 06/01/17 21:25 Active Turn, Cough, Deep Breathe [RC] Q2HWA Care 06/01/17 21:40 Active Up With Assistance [RC] ASDIRECTED Care 06/01/17 21:17 Active VTE/DVT Education [RC] , Care 06/01/17 21:17 Active Consult to Case Management [CONS] Routine Cons 06/01/17 21:17 Active OT Evaluation and Treatment [CONS] Routine Cons 06/01/17 21:17 Active PT Evaluation and Treatment [CONS] Routine Cons 06/01/17 21:17 Active Respiratory Care Assess and Treatment [CONS] Routine Cons 06/01/17 21:17 Active 2 Gram Sodium Diet [DIET] Diet 06/01/17 Dinner Active Fluid Restriction [DIET] Diet 06/02/17 Breakfast Active CXR [Chest 2V] [CR] Routine Exams 06/03/17 08:00 Ordered BASIC METABOLIC PANEL,BMP [CHEM] AM Lab 06/02/17 05:11 Ordered BASIC METABOLIC PANEL,BMP [CHEM] AM Lab 06/03/17 05:11 Ordered BASIC METABOLIC PANEL,BMP [CHEM] AM Lab 06/04/17 05:11 Ordered BASIC METABOLIC PANEL,BMP [CHEM] AM Lab 06/05/17 05:11 Ordered CBC WITH AUTO DIFF [HEME] AM Lab 06/02/17 05:11 Ordered CBC WITH AUTO DIFF [HEME] AM Lab 06/03/17 05:11 Ordered CBC WITH AUTO DIFF [HEME] AM Lab 06/04/17 05:11 Ordered CBC WITH AUTO DIFF [HEME] AM Lab 06/05/17 05:11 Ordered CRP [C-REACTIVE PROTEIN] [CHEM] AM Lab 06/02/17 05:11 Ordered CRP [C-REACTIVE PROTEIN] [CHEM] AM Lab 06/03/17 05:11 Ordered CRP [C-REACTIVE PROTEIN] [CHEM] AM Lab 06/04/17 05:11 Ordered CRP [C-REACTIVE PROTEIN] [CHEM] AM Lab 06/05/17 05:11 Ordered CULTURE SPUTUM + SMEAR [RM] Routine Lab 06/01/17 21:41 Uncollected MAGNESIUM [CHEM] AM Lab 06/02/17 05:11 Ordered MAGNESIUM [CHEM] AM Lab 06/03/17 05:11 Ordered MAGNESIUM [CHEM] AM Lab 06/04/17 05:11 Ordered MAGNESIUM [CHEM] AM Lab 06/05/17 05:11 Ordered Acetaminophen [Tylenol] Med 06/01/17 21:17 Active 650 mg PO Q4H PRN Albuterol [Proventil Neb Soln] Med 06/01/17 21:17 Active 2.5 mg NEB Q2H PRN Albuterol/Ipratropium [DuoNeb 3.0-0.5 MG/3 ML] Med 06/01/17 21:17 Active 3 ml NEB Q4H PRN Bisacodyl [Dulcolax] Med 06/01/17 21:17 Active 5 mg PO DAILY PRN Docusate Sodium [Colace] Med 06/01/17 21:17 Active 100 mg PO BID PRN Docusate Sodium/Sennosides [Senna Plus] Med 06/01/17 21:17 Active 1 tab PO BID PRN Levofloxacin/Dextrose 5%-Water [Levaquin in D5W 250 MG/ Med 06/02/17 12:00 Pending 50 ML] 250 mg Premix Bag 1 bag IV Q24H Metoprolol Tartrate [Lopressor] Med 06/01/17 21:40 Active 5 mg IVPUSH Q4H PRN Ondansetron [Zofran ODT] Med 06/01/17 21:17 Active 4 mg PO Q6H PRN Ondansetron [Zofran] Med 06/01/17 21:17 Active 4 mg IV Q6H PRN Polyethylene Glycol 3350 [MiraLAX] Med 06/01/17 21:17 Active 17 gm PO DAILY PRN cefTRIAXone [Rocephin] 2 gm Med 06/02/17 17:30 Active Sodium Chloride 0.9% [Normal Saline] 100 ml IV Q24H hydrALAZINE [Apresoline] Med 06/01/17 21:40 Active 10 mg IVPUSH Q6H PRN Antiembolic Hose [OM.PC] Per Unit Routine Oth 06/01/17 21:18 Ordered Resuscitation Status Routine Resus Stat 06/01/17 21:17 Ordered Medication Orders Acetaminophen (Tylenol) 650 mg PO Q4H PRN PRN Reason: Pain (Mild 1-3)/fever Albuterol (Proventil Neb Soln) 2.5 mg NEB Q2H PRN PRN Reason: Shortness Of Breath/wheezing Albuterol/Ipratropium (Duoneb 3.0-0.5 Mg/3 Ml) 3 ml NEB Q4H PRN PRN Reason: Shortness Of Breath/wheezing Bisacodyl (Dulcolax) 5 mg PO DAILY PRN PRN Reason: Constipation Docusate Sodium (Colace) 100 mg PO BID PRN PRN Reason: Constipation Hydralazine HCl (Apresoline) 10 mg IVPUSH Q6H PRN PRN Reason: Hypertension Ceftriaxone Sodium 2 gm/ (Sodium Chloride) 100 mls @ 200 mls/hr IV Q24H MAUREEN Levofloxacin/Dextrose 250 mg/ (Premix) 50 mls @ 50 mls/hr IV Q24H MAUREEN Metoprolol Tartrate (Lopressor) 5 mg IVPUSH Q4H PRN PRN Reason: Tachycardia Ondansetron HCl (Zofran Odt) 4 mg PO Q6H PRN PRN Reason: nausea, able to take PO Ondansetron HCl (Zofran) 4 mg IV Q6H PRN PRN Reason: Nausea/Vomiting Polyethylene Glycol (Miralax) 17 gm PO DAILY PRN PRN Reason: Constipation Senna/Docusate Sodium (Senna Plus) 1 tab PO BID PRN PRN Reason: Constipation Sodium Chloride (Saline Flush) 10 ml FLUSH ASDIRECTED PRN PRN Reason: Keep Vein Open Last Admin: 06/01/17 19:09 Dose: 10 ml Assessment/Plan Comment:: I/P: Acute: Pneumonia - HCAP -Fever noted during dialysis (100.4) -Dry cough, rigors, chills -Hypoxia on ED arrival with pulse ox in 70's -HX/o COPD, on chronic O2 at bedtime -Recently discharge from [facility] -Immunocompromised -WBC 17.28 -Poor overall health, end stage renal failure -Rocephin and Levaquin started in ED -IS/Acapella/RT -Duonebs/ albuterol as needed -Sputum culture -Blood cultures pending -CXR shows right lower lobe pneumonia - repeat in 48 hrs Malignant melanoma -receiving chemotherapy injections -Suspect cause of thrombocytopenia -followed by oncology CHF -Acute on chronic -worsened by recent renal failure -On dialysis -Echo ordered -60 mg IV lasix given in ED -produces about a cup or more of urine per day S/P dialysis -Received dialysis today -3.5 of planned 4 hrs achieved -Next dialysis scheduled for Monday -Recent shunt placement -No signs of infection at dialysis site -Had attempted peritoneal dialysis but it failed over its 3 week course -Discussed transfer due to possible need for bedside dialysis but patient and adamantly refused Hypomagnesemia -Supplemented -Monitor Chronic: HTN Recurrent bronchitis COPD BPH Dialysis Arthritis Back pain OA Plan: Admit to medical floor on telemetry CM for discharge planning PT/OT Other orders as indicated above Home meds as ordered Routine AM labs DVT prophylaxis: DANNIELLE Oneil - thrombocytopenina and poor renal function Code status: Full code
[2017-06-02] MEDS ORDERED: Magnesium Oxide 400 MG Tab PO ONE ×2 (01:30→09:14)
[2017-06-02] MEDS ORDERED: hydrALAZINE 20 MG/ML SDV IVPUSH PRN (01:32)
[2017-06-02] MEDS ORDERED: Metoprolol Tartrate 5 MG/5 ML SDV IVPUSH PRN (01:32)
[2017-06-02] MEDS ORDERED: Lactulose Soln 10 GM/15 ML 30 ML UD Cup PO PRN (01:35)
[2017-06-02] MEDS ORDERED: Acetaminophen/oxyCODONE 325-5 MG Tab PO PRN (01:35)
[2017-06-02] MEDS ORDERED: MELATONIN 3 MG PO PRN (01:35)
[2017-06-02] MEDS ORDERED: Pantoprazole 40 MG Tab.CR PO SCH (06:00)
--- NOTE | 2017-06-02 07:58 | CR ---
Chest: Portable view of the chest was obtained. Comparison: No prior chest x-ray. Increased density within both lung bases, worse on the right side. Heart size and mediastinum are normal. Right-sided catheter is seen. Bony structures are osteopenic. Impression: 1. Increased density within both lung bases, worse on the right side. Findings most likely representing pneumonia. 2. Other incidental findings. Diagnostic code #3
[2017-06-02] MEDS ORDERED: Calcium Acetate 667 MG Cap PO SCH (09:00)
[2017-06-02] MEDS ORDERED: Metoprolol Succinate 25 MG Tab.ER PO SCH (09:00)
[2017-06-02] MEDS ORDERED: Acyclovir 200 MG Cap PO SCH (09:00)
[2017-06-02] MEDS ORDERED: Budesonide/Formoterol 160-4.5 MCG/Puff 6 GM Inhaler INH SCH (09:00)
[2017-06-02] MEDS ORDERED: Formoterol/Mometasone 200-5 MCG 8.8 GM Inhaler IH SCH (09:00)
[2017-06-02] MEDS ORDERED: NIFEdipine 10 MG Cap PO SCH (09:00)
[2017-06-02] MEDS ORDERED: Tiotropium Inhaler 18 MCG Inhalation Powder Cap Kit of 5 INH SCH (09:00)
[2017-06-02] MEDS ORDERED: Tamsulosin 0.4 MG Cap.ER PO SCH (09:00)
[2017-06-02] MEDS ORDERED: Rosuvastatin 10 MG Tab PO SCH (09:00)
[2017-06-02] MEDS ORDERED: hydrALAZINE 10 MG Tab PO SCH (09:00)
[2017-06-02] MEDS ORDERED: Aspirin 81 MG Tab.Chew PO SCH (09:00)
[2017-06-02] MEDS ORDERED: metroNIDAZOLE/Normal Saline 500 MG in Premix Bag 1 BAG IV ONE (09:09)
--- NOTE | 2017-06-02 09:51 | PCM.DCSUM1 ---
Discharge Summary - Hospital Course Free Text/Narrative:: Bill Pardo is a 72 yo male who since her ED today from the dialysis unit because of persistent fever noted throughout his dialysis run today. The patient was discharged from [facility] yesterday. He is having his first [facility] today. Temp on arrival was 100.4. He was a shortness of breath and fever. States he developed fever and chills yesterday evening which came on very quickly. He is usually on home oxygen at 1 -2 L at bedtime because his oxygen saturation drops to around 85% when he sleeps. When he arrived from dialysis his sats were only in the low 70s. A dry weight has been establish apparently taken off over 40 pounds of fluid from him over the last several weeks. He presents with a dry cough. He has had his influenza vaccination. His had pneumonia in the past. He has a history of mild COPD. The patient previously done peritoneal dialysis which was largely unsuccessful and plugged several times. It was removed yesterday. You compromised due to multiple myeloma and received a chemotherapy shot in his right lower abdomen yesterday which resulted an area of edema characteristic of the shots. He is on cyclosporine and dexamethasone. He still makes a couple more of urine per day. His AV fistula in his left upper extremity which has been present for 2 days. Arrival in the ED temperature 37.2. Pulse 1:15. Respirations 22.the pressure was 260/95. EKG is obtained and shows a rate of 102 bpm nonspecific T-wave flattening is noted in aVL and V6. Blood cultures are obtained. Insulin screen is obtained and is negative.urinalysis was attempted however patient is unable to produce any urine at this time. Labs are obtained: WBC is elevated at 17.28. Hemoglobin is low at 9.1. Hematocrit low at 20.7. He is macrocytic. Platelets are very low at 28,000. Neutrophils are elevated 92%. There is no bandemia. ESR is obtained and found to be 25. PT is 11. INR is 1.01. ABG was obtained in the right radial. PH is 7.41. PCO2 is 41.4. PO2 is low at 65. HCO3 is 25.8. O2 saturation is 95.1. Base excess is 1.6. A-a gradient is 140. This is on 5 L via nasal cannula. FiO2 is 40.00. Sodium was good at 139. Potassium 3.9. Chloride 106. Current Axid 27. Anion gap 13.9. BUN 15. Creatinine elevated 2.5. EGFR is 26. Glucose is 91. Calcium is low at 8.0. Magnesium is low at 2.5. Bilirubin is normal at 0.3. AST is 20, ALT 9 , alkaline phosphatase 103. CK-MB is 0.9. Troponin 0.044. CRP is 1.4. ProBNP is 9225. OT is low at 5.4. Albumin is low at 2.3. 2 g ceftriaxone is initiated. 60 mg Lasix is given 2 g Rocephin is also given. 500 mg by mouth Levaquin initiated. Chest x-rays performed and reveals a right lower lobe pneumonia. it is communicated to the patient and his that we generally will not admit dialysis patients to our hospital as we do not have the capability to perform bedside dialysis. They're adamant that they do not want to be transferred as the is unable to drive after dark. Concerns are addressed about the possible need for nephrology or more advanced care and they still refused. the option of flying the patient to [place] where he was recently released was explored however the patient would like to stay here at least overnight. He is subsequently admitted to the ICU under medical surgical status. He is a full code. He carries a history of hypertension, recurrent bronchitis, COPD, BPH, dialysis, arthritis, chronic back pain, osteoarthritis, malignant melanoma, kidney failure. - Discharge Data Discharge Date: 06/02/17 (admit 06/01/18) Discharge Disposition: DC/Tfer to Acute Hospital 02 Condition: Good - Discharge Diagnosis/Problem(s) (1) Acute febrile illness SNOMED Code(s): 065213819 ICD Code: R50.9 - FEVER, UNSPECIFIED Status: Acute Priority: High (2) Acute hemodialysis patient SNOMED Code(s): 404912614 ICD Code: Z99.2 - DEPENDENCE ON RENAL DIALYSIS Status: Acute Priority: High (3) H/O immunocompromised state SNOMED Code(s): 306082640 ICD Code: Z86.2 - PRSNL HISTORY OF DIS OF THE BLD/BLD-FORM ORG/IMMUN MECHNSM Status: Acute Priority: High (4) Hypomagnesemia SNOMED Code(s): 181721882 ICD Code: E83.42 - HYPOMAGNESEMIA Status: Acute Priority: High (5) Leukocytosis SNOMED Code(s): 085280175 ICD Code: D72.829 - ELEVATED WHITE BLOOD CELL COUNT, UNSPECIFIED Status: Acute Priority: High Qualifiers: Leukocytosis type: unspecified Qualified Code(s): D72.829 - Elevated white blood cell count, unspecified (6) Multiple myeloma SNOMED Code(s): 702701949 ICD Code: C90.00 - MULTIPLE MYELOMA NOT HAVING ACHIEVED REMISSION Status: Acute Priority: High Qualifiers: Multiple myeloma remission status: not in remission Qualified Code(s): C90.00 - Multiple myeloma not having achieved remission (7) Pneumonia SNOMED Code(s): 193258367 ICD Code: J18.9 - PNEUMONIA, UNSPECIFIED ORGANISM Status: Acute Priority : High Qualifiers: Pneumonia type: due to unspecified organism Laterality: right Lung location: lower lobe of lung Qualified Code(s): J18.1 - Lobar pneumonia, unspecified organism (8) Thrombocytopenia SNOMED Code(s): 343182074 ICD Code: D69.6 - THROMBOCYTOPENIA, UNSPECIFIED Status: Acute Priority: Medium (9) Anemia SNOMED Code(s): 882052815 ICD Code: D64.9 - ANEMIA, UNSPECIFIED Status: Chronic Priority: High Qualifiers: Anemia type: due to chronic kidney disease Chronic kidney disease stage: on chronic dialysis Qualified Code(s): N18.6 - End stage renal disease; D63.1 - Anemia in chronic kidney disease; D63.1 - Anemia in chronic kidney disease; Z99.2 - Dependence on renal dialysis; Z99.2 - Dependence on renal dialysis; Z99.2 - Dependence on renal dialysis; Z99.2 - Dependence on renal dialysis - Patient Summary/Data Operative Procedure(s) Performed: None Complications: None Consults: Consultations 06/01/17 21:17 Consult to Case Management [CONS] Routine OT Evaluation and Treatment [CONS] Routine PT Evaluation and Treatment [CONS] Routine Respiratory Care Assess and Treatment [CONS] Routine Labs Pending at D/C: None Recommended Follow-up Testing/Procedures: Transfer to [facility] in [place] Planned Operative Procedure(s) after DC: None Hospital Course: Patient was hospitalized overnight. Treated with levaquin and rocephin IV. Morning labs showed worsening of hgb, platelets and creatinine. Unlikely he will improve on time to be discharged for outpatient dialysis due next on Monday/tomorrow. Patient's Change Management Lead is [place]. He was just discharged from there 2 days ago after an 11 day hospital stay, fistula placement and port placement for dialysis. Decision is made to transfer patient back to [place] for Nephrology services and availability of bedside dialysis should he need that. He is high risk with immunocompromised state and now worsening labs. Hospitalist service in [place] was contacted, , they are in agreement to accept patient and agree to transfer. They review his discharge labs with me, platelet level at that time was 78, concern is for possible DIC vs HIT with regard to plummeting platelet levels. Patient is with stable VS at this time, 2L on RA. He will be transferred via ground ambulance to floor [address] at [facility]. Per Accepting hospitalist will give metronidazole IV prior to transfer to cover aspiration as he has right sided pneumonia. - Patient Instructions Diet: Renal Diet Fluid Restriction: 1500 mL Activity: As Tolerated Driving: Do Not Drive - Discharge Plan Home Medications: Home Meds Acetaminophen [Tylenol] 650 mg PO Q6H PRN 06/01/17 [History] Acyclovir 200 mg PO BID 06/01/17 [History] Aspirin 81 mg PO DAILY 06/01/17 [History] Budesonide/Formoterol [Symbicort 160-4.5 MCG] 2 puff INH BID 06/01/17 [History] Calcium Acetate 667 mg PO TID 06/01/17 [History] Fluticasone/Salmeterol [Advair Hfa 230-21 Mcg Inhaler] 2 puff INH BID 06/01/17 [ History] Lactulose [Chronulac] 30 ml PO Q6H PRN 06/01/17 [History] Melatonin 3 mg PO BEDTIME PRN 06/01/17 [History] Metoprolol Succinate 25 mg PO BID 06/01/17 [History] NIFEdipine [Procardia] 30 mg PO DAILY 06/01/17 [History] Pantoprazole Sodium [Protonix] 40 mg PO DAILY 06/01/17 [History] Rosuvastatin [Crestor] 40 mg PO DAILY 06/01/17 [History] Tamsulosin [Flomax] 0.4 mg PO DAILY 06/01/17 [History] Tiotropium [place] [Spiriva Respimat] 18 mcg INH DAILY 06/01/17 [History] hydrALAZINE [Apresoline] 10 mg PO TID 06/01/17 [History] oxyCODONE HCl/Acetaminophen [oxyCODONE-Acetaminophen 5-325] 5 - 325 mg PO Q4H PRN 06/01/17 [History] Patient Handouts: Chronic Kidney Disease, Vascular Access for Hemodialysis, Community-Acquired Pneumonia, Adult, [id number], End-Stage Kidney Disease Forms: ED Department Discharge Referrals: PCP,Not In Area [Primary Care Provider] - - Discharge Summary/Plan Comment DC Time >30 min.: Yes (60 min) - General Info Date of Service: 06/02/17 Admission Dx/Problem (Free Text: Admission Diagnosis/Problem Admission Diagnosis/Problem Pneumonia Pneumonia ESRD requiring hemodialysis Anemia Thrombocytopenia Multiple Myeloma Newly inserted fistula and dialysis catheter Functional Status: Reports: Pain Controlled, Ambulating, Urinating (100cc of urine output) - Review of Systems General: Reports: Fever, Weakness, Fatigue HEENT: Reports: No Symptoms Pulmonary: Reports: Shortness of Breath, Cough Cardiovascular: Denies: Chest Pain, Palpitations, Dyspnea on Exertion Gastrointestinal: Reports: No Symptoms. Denies: Abdominal Pain, Nausea Genitourinary: Reports: No Symptoms, Other (minimal UO daily since early April) Musculoskeletal: Reports: No Symptoms Neurological: Reports: No Symptoms Psychiatric: Reports: No Symptoms - Patient Data Vitals - Most Recent: Last Vital Signs Temp 99.4 F 06/02/17 08:00 Pulse 82 06/02/17 08:29 Resp 19 06/02/17 08:00 BP 166/66 H 06/02/17 08:32 Pulse Ox 94 L 06/02/17 08:58 Weight - Most Recent: 189 lb 14.4 oz I&O - Last 24 hours: Intake & Output 06/01/17 06/02/17 06/02/17 22:59 06:59 14:59 Intake Total 200 200 Output Total 0 Balance 200 200 Lab Results - Last 24 hrs: Laboratory Results - last 24 hr 06/02/17 06/02/17 06/02/17 Range/Units 06:10 06:10 06:20 WBC 15.54 H (4.23-9.07) K/mm3 RBC 2.24 L (4.63-6.08) M/mm3 Hgb 6.5 L* (13.7-17.5) gm/L Hct 21.6 L (40.1-51.0) % MCV 96.4 H (79.0-92.2) fl MCH 29.0 (25.7-32.2) pg MCHC 30.1 L (32.2-35.5) g/dl RDW Std Deviation 48.2 H (35.1-43.9) fL Plt Count 26 L (163-337) K/mm3 MPV 11.3 (9.4-12.3) fl Neut % (Auto) 90.2 H (34.0-67.9) % Lymph % (Auto) 2.6 L (21.8-53.1) % Citrus % (Auto) 6.1 (5.3-12.2) % Eos % (Auto) 0.6 L (0.8-7.0) Baso % (Auto) 0.1 (0.1-1.2) % Neut # (Auto) 14.01 H (1.78-5.38) K/mm3 Lymph # (Auto) 0.40 L (1.32-3.57) K/mm3 Citrus # (Auto) 0.95 H (0.30-0.82) K/mm3 Eos # (Auto) 0.10 (0.04-0.54) K/mm3 Baso # (Auto) 0.02 (0.01-0.08) K/mm3 Manual Slide Review Abnormal smear Sodium 137 (136-145) mEq/L Potassium 4.6 (3.5-5.1) mEq/L Chloride 103 (98-107) mEq/L Carbon Dioxide 30 (21-32) mEq/L Anion Gap 8.6 (5-15) BUN 20 H (7-18) mg/dL Creatinine 3.2 H (0.7-1.3) mg/dL Est Cr Clr Drug Dosing 20.87 mL/min Estimated GFR (MDRD) 19 (>60) mL/min BUN/Creatinine Ratio 6.3 L (14-18) Glucose 95 (83-115) mg/dL Calcium 7.6 L (8.5-10.1) mg/dL Magnesium 1.6 L (1.8-2.4) mg/dl C-Reactive Protein 6.2 H* (<1.0) mg/dL Urine Color Yellow (Yellow) Urine Appearance Slt cloudy H (Clear) Urine pH 6.0 (5.0-8.0) Ur Specific [place] 1.025 (1.005-1.030) Urine Protein 3+ H (Negative) Urine Glucose (UA) Negative (Negative) Urine Ketones Trace H (Negative) Urine Occult Blood 3+ H (Negative) Urine Nitrite Negative (Negative) Urine Bilirubin 1+ H (Negative) Urine Urobilinogen 0.2 (0.2-1.0) Ur Leukocyte Esterase Trace H (Negative) Urine RBC Too numerous to cnt H (0-5) /hpf Urine WBC 10-20 H (0-5) /hpf Ur Epithelial Cells 0-5 (0-5) /hpf Amorphous Sediment Few H (NOT SEEN) /hpf Urine Bacteria Few (FEW) /hpf Urine Mucus Not seen (FEW) /hpf Med Orders - Current: Current Medications Acetaminophen (Tylenol) 650 mg PO Q4H PRN PRN Reason: Pain (Mild 1-3)/fever Acyclovir (Zovirax) 200 mg PO BID [facility] Last Admin: 06/02/17 08:31 Dose: 200 mg Albuterol (Proventil Neb Soln) 2.5 mg NEB Q2H PRN PRN Reason: Shortness Of Breath/wheezing Albuterol/Ipratropium (Duoneb 3.0-0.5 Mg/3 Ml) 3 ml NEB Q4H PRN PRN Reason: Shortness Of Breath/wheezing Aspirin (Aspirin) 81 mg PO DAILY [facility] Last Admin: 06/02/17 08:31 Dose: 81 mg Bisacodyl (Dulcolax) 5 mg PO DAILY PRN PRN Reason: Constipation Budesonide/Formoterol Fumarate (Symbicort 160-4.5 Mcg) 0 gm INH BID [facility] Last Admin: 06/02/17 09:13 Dose: Not Given Calcium Acetate (Phoslo) 667 mg PO TID [facility] Last Admin: 06/02/17 08:31 Dose: 667 mg Docusate Sodium (Colace) 100 mg PO BID PRN PRN Reason: Constipation Hydralazine HCl (Apresoline) 10 mg IVPUSH Q6H PRN PRN Reason: Hypertension Hydralazine HCl (Apresoline) 10 mg PO TID [facility] Last Admin: 06/02/17 08:32 Dose: 10 mg Ceftriaxone Sodium 2 gm/ (Dextrose/Water) 100 mls @ 200 mls/hr IV Q24H [facility] Metronidazole 500 mg/ Premix 100 mls @ 100 mls/hr IV ONETIME ONE Stop: 06/02/17 10:08 Last Admin: 06/02/17 09:30 Dose: 100 mls/hr Lactulose (Cephulac) 20 gm PO Q6H PRN PRN Reason: Constipation Metoprolol Succinate (Toprol Xl) 25 mg PO BID [facility] Last Admin: 06/02/17 08:29 Dose: 25 mg Metoprolol Tartrate (Lopressor) 5 mg IVPUSH Q4H PRN PRN Reason: Tachycardia Mometasone Furoate/Formoterol Fumar (Dulera 200-5 Mcg) 2 puff IH BID [facility] Last Admin: 06/02/17 08:58 Dose: 2 puff Nifedipine (Procardia) 30 mg PO DAILY [facility] Last Admin: 06/02/17 08:32 Dose: 30 mg Ondansetron HCl (Zofran Odt) 4 mg PO Q6H PRN PRN Reason: nausea, able to take PO Ondansetron HCl (Zofran) 4 mg IV Q6H PRN PRN Reason: Nausea/Vomiting Oxycodone/Acetaminophen (Percocet 325-5 Mg) 1 tab PO Q4H PRN PRN Reason: Pain Pantoprazole Sodium (Protonix) 40 mg PO ACBREAKFAST [facility] Last Admin: 06/02/17 06:17 Dose: 40 mg Melatonin 3mg ( (Patients Own Med)) 1 each PO BEDTIME PRN PRN Reason: Insomnia Polyethylene Glycol (Miralax) 17 gm PO DAILY PRN PRN Reason: Constipation Rosuvastatin Calcium (Crestor) 40 mg PO DAILY [facility] Last Admin: 06/02/17 08:28 Dose: 40 mg Senna/Docusate Sodium (Senna Plus) 1 tab PO BID PRN PRN Reason: Constipation Sodium Chloride (Saline Flush) 10 ml FLUSH ASDIRECTED PRN PRN Reason: Keep Vein Open Last Admin: 06/01/17 19:09 Dose: 10 ml Tamsulosin HCl (Flomax) 0.4 mg PO DAILY [facility] Last Admin: 06/02/17 08:29 Dose: 0.4 mg Tiotropium [place] (Spiriva Handihaler) 18 mcg INH DAILY [facility] Last Admin: 06/02/17 08:58 Dose: 1 cap Discontinued Medications Ceftriaxone Sodium (Rocephin) Confirm Administered Dose 2 gm .ROUTE .STK-MED ONE Stop: 06/01/17 17:42 Last Admin: 06/01/17 17:45 Dose: 2 gm Furosemide (Lasix) 60 mg IVPUSH NOW ONE Stop: 06/01/17 18:59 Last Admin: 06/01/17 19:09 Dose: 60 mg Hydralazine HCl (Apresoline) 10 mg IVPUSH Q6H PRN PRN Reason: Hypertension Ceftriaxone Sodium 2 gm/ (Sodium Chloride) 100 mls @ 200 mls/hr IV ONETIME ONE Stop: 06/01/17 17:58 Last Admin: 06/01/17 17:45 Dose: 200 mls/hr Sodium Chloride (Normal Saline) Confirm Administered Dose 100 mls @ as directed .ROUTE .STK-MED ONE Stop: 06/01/17 17:42 Last Admin: 06/01/17 17:45 Dose: 100 ml Levofloxacin/Dextrose 250 mg/ (Premix) 50 mls @ 50 mls/hr IV Q24H [facility] Levofloxacin (Levaquin) 500 mg PO ONETIME ONE Stop: 06/01/17 18:56 Last Admin: 06/01/17 19:03 Dose: 500 mg Magnesium Oxide (Magnesium Oxide) 400 mg PO ONETIME ONE Stop: 06/02/17 01:31 Last Admin: 06/02/17 04:24 Dose: 400 mg Magnesium Oxide (Magnesium Oxide) 400 mg PO ONETIME ONE Stop: 06/02/17 09:15 Last Admin: 06/02/17 09:30 Dose: 400 mg Metoprolol Tartrate (Lopressor) 5 mg IVPUSH Q4H PRN PRN Reason: Tachycardia - Exam Quality Assessment: Reports: Supplemental Oxygen General: Reports: Alert, Cooperative, No Acute Distress HEENT: Reports: Pupils Equal, EOMI Neck: Reports: Supple Lungs: Reports: Normal Respiratory Effort, Decreased Breath Sounds, Wheezing ( mid lobes bilat) Cardiovascular: Reports: Regular Rate, Regular Rhythm GI/Abdominal Exam: Normal Bowel Sounds, Soft, Non-Tender (Male) Exam: Deferred Rectal (Males) Exam: Deferred Extremities: Pedal Edema (3+ edema to LE ), Other (bilat upper extremities with 1+ edema to forearms, dependent edema to elbows. Fistula site/incision to left forearm/AC area is without erythema or s/s of infection. Port site to rt upper chest is without s/s of infection. ) Neurological: Reports: Normal Speech, Normal Tone Psy/Mental Status: Reports: Alert, Normal Affect, Normal Mood *Q Meaningful Use (DIS) - VTE *Q VTE Criteria *Q: - Stroke *Q Stroke Criteria *Q: - AMI *Q AMI Criteria *Q:
[2017-06-02] MEDS ORDERED: Levofloxacin/Dextrose 5%-Water 250 MG in Premix Bag 1 BAG IV SCH (12:00)
== END 2017-06-02 10:13 | DRG 193 ==
LOC: JD.ED 16:01 → JD.ICU 19:07
PROVIDERS: ADMIT Internal Medicine; ATTEND Emergency Medicine
DX: J18.9 Pneumonia, unspecified organism (principal); N18.6 End stage renal disease; I50.33 Acute on chronic diastolic (congestive) heart failure; C90.00 Multiple myeloma not having achieved remission; I13.2 Hypertensive heart and chronic kidney disease with heart failure and with stage 5 chronic kidney disease, or end stage renal disease; D69.6 Thrombocytopenia, unspecified; D72.825 Bandemia; Z99.2 Dependence on renal dialysis; D63.1 Anemia in chronic kidney disease; E83.42 Hypomagnesemia; Y95 Nosocomial condition; N40.0 Benign prostatic hyperplasia without lower urinary tract symptoms; M19.90 Unspecified osteoarthritis, unspecified site; G89.29 Other chronic pain; M54.9 Dorsalgia, unspecified; J44.9 Chronic obstructive pulmonary disease, unspecified; Z86.2 Personal history of diseases of the blood and blood-forming organs and certain disorders involving the immune mechanism; Z79.82 Long term (current) use of aspirin; Z79.899 Other long term (current) drug therapy
CPT/HCPCS: 36415; 36600; 71045; 71045-26; 80048; 80053; 81001; 82553; 82803; 83735; 83880; 84484; 85025; 85610; 85652; 86140; 87040; 87804; 93005; 93010; 94640; 94664; 94667; 96365; 96375; 99284-25; 99285-25; A9270; A9270-GY; J0696; J1940; J7030; J7050